=== PATIENT | male | born 1990 | race Hispanic/Latino ===

== ENCOUNTER 2024-03-08 22:31 | Emergency (ER) | payer SELFPAY ==
[2024-03-08 22:33] VITALS: BP 139/74; PULSE 70; RESP 16; TEMP 36.4; O2SAT 98
[2024-03-08 23:16] VITALS: BP 144/86; PULSE 65; RESP 14; O2SAT 98
--- NOTE | 2024-03-08 23:46 | ED.GENADULT ---
HPI - General Adult General Chief complaint: Skin/Abscess/Foreign Body Stated complaint: rash Time Seen by Provider: 03/08/24 22:56 Source: patient Mode of arrival: ambulatory Limitations: language barrier ( Using [employer] diplomatic interpreter/translator) History of Present Illness HPI narrative: this is a 33-year-old male that presents to the emergency department for an itchy rash. Ongoing over the last couple of weeks. She was seen at urgent care for this and given a 5 day course of steroids he took this with little relief. 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 He has had reactions to poison chrissy in the past. No other known new medications, soaps, lotions, detergents, or exposures. Related Data Allergies Allergy/AdvReac Type Severity Reaction Status Date / Time No Known Allergies Allergy Verified 03/08/24 22:37 Review of Systems Review of Systems: CONSTITUTIONAL: Denies fever SKIN: Reports rash and itching. All systems reviewed & are unremarkable except as noted in HPI and below PMFSH Past Medical History Medical History (Updated 03/08/24 @ 23:53 by Amy Asencio PA-C) No active medical problems Social History Social History (Updated 03/08/24 @ 23:49 by Amy Asencio PA-C) Smoking status: Current some day smoker Exam Narrative: GENERAL: Well-appearing, well-nourished, and in no acute distress. HEAD: Normocephalic, atraumatic. EYES: EOMI. CHEST: No respiratory distress. HEART: Regular rate EXTREMITIES: Normal range of motion. No edema. SKIN: Warm, dry. Erythematous papules and vesicles present over the arms, chest, back and upper legs NEURO: No focal deficits. Alert and oriented x3. PSYCH: Normal mood and affect Course Course Emergency Course: patient agrees with plan of care Vital Signs Vital signs: Vital Signs Temperature 97.5 F L 03/08/24 22:33 Pulse Rate 70 03/08/24 22:33 Respiratory Rate 16 03/08/24 22:33 Blood Pressure 139/74 03/08/24 22:33 Pulse Oximetry 98 03/08/24 22:33 Temperature 97.5 F L 03/08/24 22:33 Pulse Rate 65 03/08/24 23:16 Respiratory Rate 14 03/08/24 23:16 Blood Pressure 144/86 H 03/08/24 23:16 Pulse Oximetry 98 03/08/24 23:16 Medical Decision Making MDM Narrative Medical decision making narrative: patient presents to the emergency department for itchy rash present over the last couple of weeks. Reports exposure to poison chrissy and reaction to this in the past. His exam is consistent with contact dermatitis likely due to poison chrissy. No signs of secondary bacterial infection. Will be started on a longer steroid taper. He is to follow up with primary provider. He was given warnings to return to the ER Vital Signs Vital Signs: Vital Signs Temperature 97.5 F L 03/08/24 22:33 Pulse Rate 70 03/08/24 22:33 Respiratory Rate 16 03/08/24 22:33 Blood Pressure 139/74 03/08/24 22:33 Pulse Oximetry 98 03/08/24 22:33 Temperature 97.5 F L 03/08/24 22:33 Pulse Rate 65 03/08/24 23:16 Respiratory Rate 14 03/08/24 23:16 Blood Pressure 144/86 H 03/08/24 23:16 Pulse Oximetry 98 03/08/24 23:16 Critical Care Time Critical Care Time Critical Care Time: No Discharge Plan Discharge Clinical Impression: Poison chrissy dermatitis Patient Disposition: Home, Self-Care Condition: Stable Instructions: Poison Chrissy (ED) Additional Instructions: Return to the emergency department if you experience fever, redness and swelling of your wounds, abnormal drainage from your wounds, or any other symptoms that are concerning to you Take a Zyrtec daily. Take steroid taper as prescribed. Benadryl as needed for severe itching. You may apply Zanfel, this is an over the counter wash that can help Follow-up with primary care doctor Patient Language: Russian Prescriptions: New prednisone 10 mg tablet 10 mg PO DAILY Qty: 45 0RF Rx Instructions: 5 tabs daily for 3 days, 4 t
== END 2024-03-08 23:59 | disposition home or self-care (01) ==
PROVIDERS: Emergency Provider Physician Assistant
DX: L23.7 Allergic contact dermatitis due to plants, except food (principal); F17.200 Nicotine dependence, unspecified, uncomplicated
CPT/HCPCS: 99283